=== PATIENT | female | born 1995 | race Caucasian/White ===

== ENCOUNTER 2018-05-23 17:44 | Emergency (ER) | payer OTHER, SELFPAY ==
[2018-05-23 17:45] VITALS: BP 136/73; PULSE 94; RESP 16; TEMP 36.8; O2SAT 98; BMI 38.9
--- NOTE | 2018-05-23 18:11 | CT_ITS ---
STUDY: CT ABDOMEN AND PELVIS WITHOUT CONTRAST REASON FOR EXAM: Female, 22 years old. Flank pain RADIATION DOSAGE (If Supplied By Facility): CTDIvol = ( 20.56 ) mGy, DLP = ( 1052.76 ) mGycm TECHNIQUE: Transaxial images were obtained from the dome of the diaphragm to the symphysis pubis without oral contrast, and without intravenous contrast. Sagittal and coronal images were reconstructed. Individualized dose optimization techniques were used for this CT. COMPARISON: None. FINDINGS: The visualized lung bases are unremarkable. The visualized portions of the heart are within normal limits. Normal liver. Normal gallbladder and extrahepatic biliary system. Normal spleen. Normal pancreas. Normal bilateral adrenal glands. Normal right kidney. Normal left kidney. Normal visualized stomach. Normal small intestine. Retained stool noted throughout the colon. The appendix is visualized and appears normal. And expressed seen on coronal recon image 63 and 64 Normal abdominal aorta. Normal inferior vena cava. Normal retroperitoneum. Normal urinary bladder. Normal visualized uterus. No suspicious adnexal mass or free fluid Normal abdominal wall. Normal osseous structures. CT/Abdomen/Pelvis without Cont IMPRESSION: No suspicious solid organ abnormality No CT evidence of an acute inflammatory process, normal appendix visualized. Electronically Signed: Jason West MD at 19:40 EST , Service support ,
[2018-05-23 18:24] LABS: Absolute Lymphocyte Count 2.16 X10^3/ul (0.83-4.51); Absolute Neutrophil Count 7.1 X10^3/uL (2.0-7.7); Basophil# 0.07 X10^3/uL; Basophil% 0.6 % (0-1); Eosinophils% 2.7 % (0-5); Hematocrit 39.6 % (37-47); Hemoglobin 12.7 g/dl (12.0-15.0); Lymphocyte # 2.16 X10^3/ul (4.0); Lymphocyte % 19.8 % (19-41); Mean Corp Hgb Conc 32.1 g/gl (32-36); Mean Corpuscular Hgb 29.3 pg (27.0-32.0); Mean Corpuscular Volume 91.2 fL (81-99); Monocyte# 1.23 X10^3/uL; Monocyte% 11.3 % (0-10); Neutrophil # 7.13 X10^3/uL (2.7-7.7); Neutrophil % 65.4 % (47-70); Platelet Count 344 K/mm3 (150-450); RBC Distribution Width CV 13.7 % (11.6-14.6); RBC Distribution Width SD 45.8 fl (35.1-43.9); Red Blood Count 4.34 M/mm3 (4.2-5.4); White Blood Count 10.9 K/mm3 (4.4-11.0)
[2018-05-23] MEDS: 0.9% Normal Saline 1,000 ML 150 ML IV (18:25)
[2018-05-23] MEDS: Morphine 4 MG/ML Syringe IV (18:25)
[2018-05-23] MEDS: Ondansetron 4 MG/2 ML Vial IV ×2 (18:25→18:54)
[2018-05-23 18:26] LABS: POSITIVE COUNT NO; POSITIVE DIFFERENTIAL NO; POSITIVE MORPHOLOGY NO
[2018-05-23 18:36] LABS: Red Blood Cells-Urine 0 SEEN /hpf (0-5)
[2018-05-23 18:39] LABS: Anion Gap 9 (5-15); BUN 15 mg/dL (7-18); BUN/Creat Ratio 16.4 RATIO (10-20); Calcium,Total 8.4 mg/dL (8.5-10.1); Chloride 108 mmol/L (98-107); Creatinine, Serum 0.91 mg/dL (0.55-1.02); EST Glomerular Filtration Rate 82 mL/min (>60); Est Glom Filt Rate - Afr Amer 100 mL/min (>60); Estimated Creatinine Clearance 91.55 ml/min; Glucose 104 mg/dL (74-106); Potassium 3.8 mmol/L (3.5-5.1); Sodium Level 140 mmol/L (136-145)
[2018-05-23 18:58] LABS: Color, Urine Yellow (Yellow); Glucose, Dipstick Normal (Normal); Ketone-Dipstick 5 mg/dl (Negative); Leukocyte Esterase-Dipstick 500 /ul (Negative); Nitrite-Dipstick Negative (Negative); Occult Blood-Urine 10 /ul (Negative); Protein-Dipstick 15 mg/dl (Negative); Specific Gravity, Urine 1.025 (1.002-1.030); Urine Bilirubin Dipstick Negative (Negative); Urine Clarity Sl. Cloudy (Clear); Urine Urobilinogen 1 mg/dl (Normal)
[2018-05-23 19:08] LABS: Bacteria 1+ /hpf (None Seen); Calcium Oxalate Crystals Ur 1+ /hpf (<or=2+); Mucous, Urine RARE /hpf (<or=2+)
[2018-05-23 19:09] LABS: Squamous Epithelial Cells - UA 0-5 SEEN /hpf (5-10); White Blood Cells 10-25 SEEN /hpf (0-5)
[2018-05-23 19:12] LABS: Pregnancy, Serum, hCG Quali. NEGATIVE Negative (0-9 Nonpreg)
--- NOTE | 2018-05-23 20:09 | ED.VISSUMM ---
- ER Visit Summary Date of Service: 05/23/18 Chief Complaint: [Left flank pain] History of Present Illness: The patient is a 22 F [presents the emergency department left-sided flank pain that started a week ago. Patient rates her pain currently as a 6 or 7 out of 10. Patient had some nausea with it but no vomiting. Patient has noticed some intermittent blood in the urine. She denies any dysuria. Patient has noted that the urine has been somewhat cloudy. She was seen by Dr. Sotelo in the office today and had a urine dip screen and there was blood in it and there was concern for possible kidney stone as patient has had history of kidney stones in the past. Patient also with history of asthma. Patient does not believe that she is and her last menstrual period was on May 05.] Physical Examination: [HEENT-PERRLA, EOMI. Cranial nerves II through XII grossly intact. TMs clear. Mucous membranes moist. No adenopathy. Cardiovascular-regular rate and rhythm without murmur or ectopy Lungs-clear to auscultation, chest wall stable without crepitus or subcu emphysema Abdomen-normoactive bowel sounds, soft. Patient has tenderness palpation over left lower quadrant. There is no rebound, rigidity, or perineal signs. Patient has some mild CVA tenderness on the left. Extremities-intact ?4, normal range of motion, normal pulses, atraumatic] Test Results: [CBC with differential was normal. Chemistries unremarkable. Urinalysis was positive for 500 leukocyte esterase, 10-25 WBCs, +1 bacteria. H[address] was negative. CT flank showed nothing acute.] Emergency Department Course and Treatment: [Patient was given Rocephin 1 g IV. Patient was medicated with morphine and Zofran.] Treatment Plan: [Patient will be given a prescription for Bactrim as well as [place] for severe pain.] Disposition: [Discharged home in stable condition. Patient advised to return if worsening pain, fever, vomiting, or condition should worsen anyway.] Impression: [Urinary tract infection-early pyelonephritis] This note was generated with [employer] dictation software. It may contain incorrect words, spelling, and punctuation that were not noted in review of the chart prior to signing ED Disposition - Plan for ED Patient: Referrals: Gokul Gonzalez MD [Primary Care Provider] -
--- NOTE | 2018-05-23 20:12 | ED.DEP ---
ED Disposition - Plan for ED Patient: Instructions: ED UTI Cystitis Female Prescriptions: Hydrocodone Bitart/Apap 5-325 [[place] 5MG-325MG] 1 tab PO Q4H PRN PRN 2 Days #10 tab PRN Reason: Pain Smz/Tmp Ds [Bactrim Ds] 1 tab PO BID #10 tab Referrals: Gokul Gonzalez MD [Primary Care Provider] - 3-5 Days
--- NOTE | 2018-05-23 20:14 | DCINST.ED_ITS ---
ED Disposition - Plan for ED Patient: Instructions: ED UTI Cystitis Female Prescriptions: Hydrocodone Bitart/Apap 5-325 [[place] 5MG-325MG] 1 tab PO Q4H PRN PRN 2 Days #10 tab PRN Reason: Pain Ondansetron [Zofran Odt] 4 mg PO Q8H PRN PRN #10 tab PRN Reason: Nausea Smz/Tmp Ds [Bactrim Ds] 1 tab PO BID #10 tab Referrals: Gokul Gonzalez MD [Primary Care Provider] - 3-5 Days
[2018-05-23] MEDS: Ceftriaxone 1 GM/50 ML BAG IV (20:24)
== END 2018-05-23 21:07 | disposition home or self-care (01) ==
PROVIDERS: Emergency Provider Emergency Medicine; Family Provider Family Medicine; PCP Family Medicine
DX: N39.0 Urinary tract infection, site not specified (principal); N12 Tubulo-interstitial nephritis, not specified as acute or chronic; J45.909 Unspecified asthma, uncomplicated; Z87.442 Personal history of urinary calculi
CPT/HCPCS: 74176; 80048; 81001; 84703; 85025; 87086; 87088; 96361; 96365; 96375; 99283; A4216; J2405

== ENCOUNTER → 2018-05-25 20:53 | Outpatient (CLI) | payer OTHER, SELFPAY | LOC: SL 20:53 | PROVIDERS: Family Provider Family Medicine; PCP Family Medicine; Visit Provider Pediatrics | DX: G47.9 Sleep disorder, unspecified (principal) | CPT/HCPCS: 95810 ==

== ENCOUNTER 2018-07-10 12:41 | Emergency (ER) | payer OTHER, SELFPAY ==
[2018-07-10 12:42] VITALS: BP 147/74; PULSE 75; RESP 23; TEMP 36.9; O2SAT 96; BMI 37.1
--- NOTE | 2018-07-10 13:08 | CT_ITS ---
STUDY: CT ABDOMEN AND PELVIS WITHOUT CONTRAST REASON FOR EXAM: Female, 22 years old. Left flank pain and history of kidney stones. RADIATION DOSAGE (If Supplied By Facility): CTDIvol = ( 21.21 ) mGy, DLP = ( 1070.49 ) mGycm TECHNIQUE: Transaxial images were obtained from the dome of the diaphragm to the symphysis pubis without oral contrast, and without intravenous contrast. Sagittal and coronal images were reconstructed. Individualized dose optimization techniques were used for this CT. COMPARISON: Comparison is made with prior study dated May 23, 2018. FINDINGS: Minimal degree of increased markings at the lung bases suggestive of mild basilar atelectasis. The visualized portions of the heart are within normal limits. Normal liver. Normal gallbladder and extrahepatic biliary system. Normal spleen. Normal pancreas. Normal bilateral adrenal glands. Punctate calcification in the mid lower portion of the right kidney. Mild degree of left hydronephrosis and left hydroureter due to a 2.5 mm calculus in the distal portion of the left ureter just proximal to the ureterovesical junction. This calculus was previously seen in the lower pole of the left kidney. There is a small hiatal hernia. Normal small intestine. Normal colon. The appendix is visualized and appears normal. Normal abdominal aorta. Normal inferior vena cava. Normal retroperitoneum. Normal urinary bladder. Normal abdominal wall. Normal osseous structures. CT/Abdomen/Pelvis without Cont IMPRESSION: Mild left hydronephrosis and left hydroureter due to a 2.5 mm calculus in the distal portion of left ureter just proximal to the ureterovesical junction. This calculus was seen in the left kidney on prior examination. Electronically Signed: Virgil Frost, at 14:51 EDT , Service support ,
[2018-07-10] MEDS: 0.9% Normal Saline 1,000 ML 250 ML IV (13:14)
[2018-07-10] MEDS: Morphine 4 MG/ML Syringe IV (13:15)
[2018-07-10] MEDS: Ondansetron 4 MG/2 ML Vial IV (13:15)
[2018-07-10] MEDS: Ketorolac 30 MG/ML Syringe IV (13:15)
[2018-07-10 13:27] LABS: Absolute Lymphocyte Count 2.49 X10^3/ul (0.83-4.51); Absolute Neutrophil Count 6.2 X10^3/uL (2.0-7.7); Basophil# 0.06 X10^3/uL; Basophil% 0.6 % (0-1); Eosinophil# 0.46 X10^3/uL; Eosinophils% 4.5 % (0-5); Hematocrit 39.6 % (37-47); Hemoglobin 12.9 g/dl (12.0-15.0); Lymphocyte # 2.49 X10^3/ul (4.0); Lymphocyte % 24.3 % (19-41); Mean Corp Hgb Conc 32.6 g/gl (32-36); Mean Corpuscular Hgb 29.3 pg (27.0-32.0); Mean Corpuscular Volume 89.8 fL (81-99); Mean Platelet Vol. 10.4 fl (6.2-12.0); Monocyte# 1.07 X10^3/uL; Monocyte% 10.4 % (0-10); Neutrophil # 6.16 X10^3/uL (2.7-7.7); Platelet Count 308 K/mm3 (150-450); RBC Distribution Width CV 13.4 % (11.6-14.6); Red Blood Count 4.41 M/mm3 (4.2-5.4); White Blood Count 10.3 K/mm3 (4.4-11.0)
[2018-07-10 13:29] LABS: POSITIVE COUNT NO; POSITIVE DIFFERENTIAL NO; POSITIVE MORPHOLOGY NO
[2018-07-10 13:30] LABS: Anion Gap 8 (5-15); BUN 20 mg/dL (7-18); BUN/Creat Ratio 16.5 RATIO (10-20); Calcium,Total 8.6 mg/dL (8.5-10.1); Chloride 108 mmol/L (98-107); Creatinine, Serum 1.21 mg/dL (0.55-1.02); EST Glomerular Filtration Rate 59 mL/min (>60); Est Glom Filt Rate - Afr Amer 72 mL/min (>60); Estimated Creatinine Clearance 68.85 ml/min; Glucose 109 mg/dL (74-106); Potassium 3.8 mmol/L (3.5-5.1); Sodium Level 142 mmol/L (136-145)
[2018-07-10 14:08] LABS: Pregnancy, Serum, hCG Quali. NEGATIVE Negative (0-9 Nonpreg)
[2018-07-10 14:50] LABS: White Blood Cells 0 SEEN /hpf (0-5)
[2018-07-10 14:51] LABS: Color, Urine Yellow (Yellow); Glucose, Dipstick Normal (Normal); Ketone-Dipstick 5 mg/dl (Negative); Leukocyte Esterase-Dipstick 25 /ul (Negative); Nitrite-Dipstick Negative (Negative); Occult Blood-Urine 250 /ul (Negative); Protein-Dipstick 15 mg/dl (Negative); Specific Gravity, Urine 1.025 (1.002-1.030); Urine Bilirubin Dipstick Negative (Negative); Urine Clarity Sl. Cloudy (Clear); Urine Urobilinogen Normal (Normal)
[2018-07-10 15:03] LABS: Bacteria 1+ /hpf (None Seen); Calcium Oxalate Crystals Ur 1+ /hpf (<or=2+); Mucous, Urine 2+ /hpf (<or=2+); Red Blood Cells-Urine 10-25 SEEN /hpf (0-5); Squamous Epithelial Cells - UA 0-5 SEEN /hpf (5-10)
--- NOTE | 2018-07-10 15:26 | ED.VISSUMM ---
- ER Visit Summary Date of Service: 07/10/18 Chief Complaint: Kidney stone History of Present Illness: The patient is a 22 F who states that this morning had a sudden onset of left flank pain. Radiating slightly around to the front. She notes nausea. She states she has had kidney stone 5 or 6 time is had one lithotripsy when she was living in [place]. No fevers. She states that she feels the urge to urinate but is unable to. Physical Examination: Afebrile vital signs stable Gen: Well-nourished well-developed is uncomfortable in the bed Head: Normocephalic atraumatic Eyes: Perrl EOMI ENT: TMs clear no rhinorrhea moist mucous membranes Neck: Supple no lymphadenopathy no JVD nontender CVS: Regular rate rhythm no murmurs normal S1-S2 Respiratory: No distress clear to auscultation bilaterally chest nontender Abdomen: Soft nontender nondistended normal bowel sounds no masses Back: Nontender Extremity: Nontender no edema Skin: Normal color no rash Neuro: alert orientated ?3 CN II-XII intact normal strength sensation reflexes gait cerebellar Psych: Normal affect normal mood Test Results: Urine shows no overt infection. Noted calcium oxalate crystals. Creatinine 1.21. Normal white count. CT the flank to him straits a distal 2.5 mm ureteral stone with associated hydronephroureter. Emergency Department Course and Treatment: Patient received Toradol morphine Zofran and fluids repeat examination finds her to be improved. Patient will be discharged home with prescriptions for Toradol and Percocet. I also write for Zofran. Urine strainer will be given. Return if worsening or concerns follow-up with primary care Impression: 1. 2.5 mm left ureterolithiasis with associated hydronephroureter This note was generated with [employer] dictation software. It may contain incorrect words, spelling, and punctuation that were not noted in review of the chart prior to signing ED Disposition - Plan for ED Patient: Disposition: Home or Assisted Living Instructions: ED Stone Renal W Colic Prescriptions: Ondansetron [Zofran Odt] 4 mg PO Q6H PRN PRN #20 tab PRN Reason: Nausea Oxycodone HCl/Acetaminophen [Percocet 5/325] 1 tab PO Q6H PRN PRN 3 Days #12 tab PRN Reason: Pain Ketorolac [Toradol] 10 mg PO Q8H PRN #15 tab PRN Reason: Pain Referrals: Gokul Gonzalez MD [Primary Care Provider] - 3-5 Days if not improving
[2018-07-10 15:54] VITALS: BP 121/68; PULSE 72; RESP 15; O2SAT 98
== END 2018-07-10 15:55 | disposition home or self-care (01) ==
PROVIDERS: Emergency Provider Emergency Medicine; Family Provider Family Medicine; PCP Family Medicine
DX: N13.2 Hydronephrosis with renal and ureteral calculous obstruction (principal); J45.909 Unspecified asthma, uncomplicated; F32.9 Major depressive disorder, single episode, unspecified
CPT/HCPCS: 74176; 80048; 81001; 84703; 85025; 96361; 96374; 96375; 99283; J7030; A4216; J2405

== ENCOUNTER → 2019-11-27 14:27 | Outpatient (CLI) | payer OTHER, SELFPAY ==
[2018-09-30 10:23] VITALS: BMI 37.1
--- NOTE | 2019-11-27 14:37 | CT_ITS ---
STUDY: CT ABDOMEN AND PELVIS WITHOUT CONTRAST REASON FOR EXAM: Female, 24 years old. Hematuria, right flank pain x 1 week, hx kidney stones, prior lithotripsy and renal stents. RADIATION DOSAGE (If Supplied By Facility): CTDIvol = ( 20.63 ) mGy, DLP = ( 1077.31 ) mGycm TECHNIQUE: Transaxial images were obtained from the dome of the diaphragm to the symphysis pubis without oral contrast, and without intravenous contrast. Sagittal and coronal images were reconstructed. Individualized dose optimization techniques were used for this CT. COMPARISON: None. FINDINGS: The visualized lung bases are unremarkable. The visualized portions of the heart are within normal limits. Normal liver. Normal gallbladder and extrahepatic biliary system. Normal spleen. Normal pancreas. Normal bilateral adrenal glands. Normal right kidney. Normal left kidney. Normal visualized stomach. Normal small intestine. Normal colon. The appendix is visualized and appears normal. Normal abdominal aorta. Normal inferior vena cava. Normal retroperitoneum. Normal urinary bladder. Normal abdominal wall. Normal osseous structures. CT/Abdomen/Pelvis without Cont IMPRESSION: Normal unenhanced CT of the abdomen and pelvis. Electronically Signed: Jairo Hubbard, at 15:08 EDT Tel , Service support ,
== END ==
PROVIDERS: PCP Family Medicine; Referring Provider Family Medicine; Visit Provider Family Medicine
DX: R31.29 Other microscopic hematuria (principal); R10.9 Unspecified abdominal pain
CPT/HCPCS: 74176

== ENCOUNTER → 2021-01-10 | Outpatient (CLI) | payer OTHER, SELFPAY | END | disposition home or self-care (01) | LOC: LABSPEC 01-12 08:14 | PROVIDERS: PCP Family Medicine; Referring Provider Physician Assistant Surgical; Visit Provider Physician Assistant Surgical | DX: Z20.822 Contact with and (suspected) exposure to COVID-19 (principal) | CPT/HCPCS: 87635; U0005; U0003 ==

== ENCOUNTER → 2021-01-18 | Outpatient (CLI) | payer OTHER, SELFPAY | END | disposition home or self-care (01) | PROVIDERS: PCP Family Medicine; Referring Provider Nurse Practitioner Family; Visit Provider Nurse Practitioner Family | DX: U07.1 COVID-19 (principal); R43.0 Anosmia; R43.2 Parageusia | CPT/HCPCS: 87635; U0005; U0003 ==

== ENCOUNTER → 2021-11-16 | Outpatient (CLI) | payer OTHER, SELFPAY ==
[2021-11-16 15:33] LABS: Absolute Lymphocyte Count 2.59 X10^3/uL (0.83-4.51); Absolute Neutrophil Count 5.6 X10^3/uL (2.0-7.7); Basophil# 0.08 X10^3/uL; Basophil% 0.8 % (0-1); Eosinophil# 0.53 X10^3/uL; Eosinophils% 5.5 % (0-5); Hematocrit 41.2 % (37-47); Hemoglobin 13.7 g/dL (12.0-15.0); Lymphocyte # 2.59 X10^3/ul (0.83-4.51); Lymphocyte % 26.9 % (19-41); Mean Corp Hgb Conc 33.3 g/dL (32-36); Mean Corpuscular Hgb 29.6 pg (27.0-32.0); Mean Platelet Vol. 11.1 fl (6.2-12.0); Monocyte# 0.86 X10^3/uL; Monocyte% 8.9 % (0-10); NRBC Flagged by Analyzer 0 % (0-5); Neutrophil # 5.55 X10^3/uL (2.7-7.7); Neutrophil % 57.7 % (47-70); Platelet Count 374 K/mm3 (150-450); RBC Distribution Width CV 13.7 % (11.6-14.6); RBC Distribution Width SD 44.8 fl (35.1-43.9); Red Blood Count 4.63 M/mm3 (4.2-5.4); White Blood Count 9.6 K/mm3 (4.4-11.0)
[2021-11-16 16:01] LABS: Anion Gap 5 (5-15); BUN 11 mg/dL (7-18); BUN/Creat Ratio 13.6 RATIO (10-20); Calcium,Total 9.1 mg/dL (8.5-10.1); Chloride 108 mmol/L (98-107); Creatinine, Serum 0.81 mg/dL (0.55-1.02); EST Glomerular Filtration Rate 92 mL/min (>60); Est Glom Filt Rate - Afr Amer 111 mL/min (>60); Glucose 85 mg/dL (74-106); Potassium 4.2 mmol/L (3.5-5.1); Sodium Level 138 mmol/L (136-145); Thyroid Stim Hormone (TSH) 2.02 uIU/mL (0.358-3.74)
== END | disposition home or self-care (01) ==
LOC: MFPLAB 11:34
PROVIDERS: PCP Family Medicine; Visit Provider Family Medicine
DX: R00.2 Palpitations (principal)
CPT/HCPCS: 36415; 80048; 84443; 85025

== ENCOUNTER 2021-11-23 15:25 | Emergency (ER) | payer OTHER, SELFPAY ==
[2021-11-23 15:26] VITALS: BP 161/87; PULSE 73; RESP 16; TEMP 36.6; O2SAT 99; BMI 43.5
--- NOTE | 2021-11-23 15:52 | CT_ITS ---
STUDY: CTA OF THE BRAIN REASON FOR EXAM: Female, 26 years old. HEADACHE TECHNIQUE: CT angiography was performed with a multi-detector CT scanner. Data acquisition was obtained from the skull base through the vertex following intravenous administration of IV 100mL Isovue-370 contrast. MIP images were reconstructed from the axial data set. Post-processing of the angiographic images was performed, with multiplanar reformation and 3D reconstruction. MIPS images were obtained. Analyzed with [email or web address] Individualized dose optimization techniques were used for this CT. COMPARISON: None. FINDINGS: Normal bilateral petrous carotid arteries. Normal right cavernous carotid artery with a normal supraclinoid bifurcation. Normal left cavernous carotid artery with a normal supraclinoid bifurcation. Normal right A1 segments of the anterior cerebral artery. Normal left A1 segments of the anterior cerebral artery. Normal intact anterior communicating artery (ACOM). Normal bilateral A2 segments of the anterior cerebral arteries. Normal right M1 and M2 segments of the middle cerebral arteries, with a normal M1 bifurcation. Normal left M1 and M2 segments of the middle cerebral arteries, with a normal M1 bifurcation. Normal right posterior communicating artery (PCOM). Normal left posterior communicating artery (PCOM). Normal bilateral vertebral arteries. Normal basilar artery with a normal basilar bifurcation. The visualized bilateral superior cerebellar (SCA) arteries are normal. Normal bilateral P1, P2 and visualized P3 segments of the posterior cerebral arteries. There is no demonstrated aneurysm of the [place]. There is no demonstrated abnormality of the visualized brain. Right parietal venous angioma. CT/CTA Head W/WO Contrast IMPRESSION: Normal [place] without a demonstrated aneurysm or hemodynamically significant stenosis. Right parietal venous angioma. Electronically Signed: Chan Mazariegos MD at 16:40 EDT ,
--- NOTE | 2021-11-23 15:53 | EKG12_ITS ---
Test Reason : palpitations Blood Pressure : / mmHG Vent. Rate : 080 BPM Atrial Rate : 080 BPM P-R Int : 164 ms QRS Dur : 098 ms QT Int : 392 ms P-R-T Axes : 069 089 037 degrees QTc Int : 452 ms Normal sinus rhythm with sinus arrhythmia Normal ECG Confirmed by HONG CATES, DICKSON ([id number]), slot editor HERNANDEZ CARD ([id number]) on 11/25/2021 9:43:30 AM Referred By: Daryl Confirmed By:DICKSON PITTS MD
--- NOTE | 2021-11-23 15:54 | EDS_ITS ---
HPI History of Present Illness Chief Complaint: Palpitations Detail of Chief Complaint: Headache Informant: patient Onset/Context/Timing Onset: Today Narrative Narrative: Patient is been having recent palpitations and is currently wearing an event monitor. She had lab work performed earlier this month that was unremarkable. Patient states today she was going up a flight of steps and her heart started pounding. She developed a headache and felt weak all over. She states has had the symptoms previously but never presented for evaluation. She has a pulse ox meter at home and when she put that on her finger her heart rate was 108. It quickly came down into the 80s. She states her symptoms are improving at this time. There is a family history of atrial fibrillation. Family denies any known history of aneurysms. [facility] Medical History (Updated 11/23/21 @ 17:[address] Gabriela Brito MD) History of kidney stones Home Medications albuterol sulfate 90 mcg/actuation aerosol inhaler (Ventolin HFA) 2 puff inhalation Q6H PRN wheezing 09/20/17 [History Last Taken Unknown] beclomethasone dipropionate 80 mcg/actuation HFA breath activated aerosol 2 puff inhalation BID 05/23/18 [History Last Taken Unknown] ondansetron 4 mg disintegrating tablet 4 mg PO Q8H PRN PRN Nausea #10 tabs 05/23/18 [Rx Last Taken Unknown] trazodone 50 mg tablet 25 mg PO QHS 05/23/18 [History Last Taken Unknown] fluoxetine 20 mg capsule 20 mg PO DAILY 07/10/18 [History Last Taken Unknown] ketorolac 10 mg tablet 10 mg PO Q8H PRN Pain #15 tabs 07/10/18 [Rx Last Taken Unknown] ondansetron 4 mg disintegrating tablet 4 mg PO Q6H PRN PRN Nausea #20 tabs 07/10/18 [Rx Last Taken Unknown] Allergy/AdvReac Type Severity Reaction Status Date / Time fluticasone Allergy Unknown Verified 11/23/21 15:29 [From Advair Diskus] salmeterol Allergy Unknown Verified 11/23/21 15:29 [From Advair Diskus] Social History Smoking Status: Never smoker alcohol intake: never ROS ROS ED Constitutional Constitutional ED: Denies chills or fever(s) Eyes Eyes: Denies change in vision or discharge from eye(s) ENT ENT ED: Denies discharge from eye(s), rhinorrhea or sore throat Cardiovascular Cardiovascular: Reports palpitations; Denies chest pain Respiratory/Chest Respiratory/Chest: Denies cough or dyspnea Gastrointestinal Gastrointestinal: Denies abdominal pain, diarrhea, nausea or vomiting Genitourinary Genitourinary ED: Denies difficulty urinating or dysuria Musculoskeletal Musculoskeletal: Denies back pain or extremity pain Integumentary Denies Abrasions or rash Neurologic Neurologic: Reports headache(s) and weakness Psychiatric Psychiatric: Denies anxiety or depression Allergic/Immunologic Allergic/Immunologic ED: Denies lip swelling or urticaria EXAM Physical Exam Const Vital Signs: 11/23/21 15:26 11/23/21 15:53 Temperature 97.8 F Temperature Source Temporal Pulse Rate 73 Respiratory Rate 16 Respiratory Effort Normal Blood Pressure 161/87 H Blood Pressure Mean 111 Pulse Ox 99 Oxygen Delivery Method Room Air Positive well nourished and well developed General Appearance ED: well developed HEENT Reports normocephalic and head/scalp atraumatic Eyes PERRL and EOMs intact bilaterally Neck supple Chest Wall inspection of chest normal and palpation of chest normal Resp normal respiratory effort and clear to auscultation bilaterally Cardio regular rate and regular rhythm GI normal to inspection, nondistended, normoactive bowel sounds Palpation: soft Extremity normal to inspection Neuro oriented x3 and no sensory deficits noted Neuro Narrative: NIH equals 0. Sensorium / Orientation: alert Motor Exam: strength 5/5 throughout Psych mental status grossly normal Skin no rashes or lesions noted MDM MDM MDM Narrative Medical decision making narrative: Placed on phototypesetting equipment monitor. EKG, lab work obtained. CTA of the head obtained to ensure no aneurysm given her headache and weakness. Lab Data Attestation: I reviewed the patient's lab results. Labs: Laboratory Results - last 24 hr 11/23/21 11/23/21 11/23/21 16:03 16:03 16:03 WBC 10.3 RBC 4.31 Hgb 12.4 Hct 38.0 MCV 88.2 MCH 28.8 MCHC 32.6 RDW Std Deviation 43.0 RDW Coeff of Carlos 13.3 Plt Count 308 MPV 11.1 Immature Gran % (Auto) 0.300 Neut % (Auto) 61.9 Lymph % (Auto) 23.0 [place] % (Auto) 10.8 H Eos % (Auto) 3.3 Baso % (Auto) 0.7 Absolute Neuts (auto) 6.4 Absolute Lymphs (auto) 2.37 Nucleated RBC % 0 Sodium 138 Potassium 4.0 Chloride 107 Carbon Dioxide 28.0 Anion Gap 3 L BUN 12 Creatinine 0.97 Estim Creat Clear Calc 83.00 Est GFR (MDRD) Af Amer 90 Est GFR (MDRD) Non-Af 75 BUN/Creatinine Ratio 12.4 Glucose 93 Calcium 8.8 Serum , Qual NEGATIVE Radiography Diagnostic Testing: Clinical Impression(s) from Imaging Studies Head CTA 11/23/21 15:52 IMPRESSION: Normal [place] without a demonstrated aneurysm or hemodynamically significant stenosis. Right parietal venous angioma. Electronically Signed: Chan Mazariegos MD at 16:40 EDT , EKG Initial EKG: Attestation: I personally reviewed and interpreted this EKG as follows: Interpretation: Sinus Rhythm (Sinus 80 with no acute ischemia.) Treatment and Re-Evaluation Narrative: On repeat evaluation patient resting comfortably. Blood pressure has improved to 127/74. Patient feels back to baseline at this time. Lab work is unremarkable. CT head reveals no evidence of aneurysm. She will continue to wear her event monitor until Tuesday and follow-up with cardiology. Discharge Plan Triage Chief Complaint: Palpitations ED Provider: Gabriela Brito Dx/Rx/DC Orders Clinical Impression: Palpitations, Headache Instructions: ED Palpitations Prescriptions: No Action albuterol sulfate [Ventolin HFA] 90 mcg/actuation HFA aerosol inhaler 2 puff INHALATION Q6H PRN (Reason: wheezing) trazodone 50 MG tablet 25 mg PO QHS beclomethasone dipropionate 1 PUFF inhaler 2 puff Inhalation BID ondansetron 4 MG tablet 4 mg PO Q8H PRN PRN (Reason: Nausea) Qty: 10 0RF fluoxetine 20 MG capsule 20 mg PO DAILY ketorolac 10 MG tablet 10 mg PO Q8H PRN (Reason: Pain) Qty: 15 0RF ondansetron 4 MG tablet 4 mg PO Q6H PRN PRN (Reason: Nausea) Qty: 20 0RF Primary Care Provider: Gokul Gonzalez Referrals: Gokul Gonzalez MD [Primary Care Provider] - 1-2 Weeks Disposition Disposition: Home, Self Care
[2021-11-23 16:11] LABS: Absolute Lymphocyte Count 2.37 X10^3/uL (0.83-4.51); Absolute Neutrophil Count 6.4 X10^3/uL (2.0-7.7); Basophil# 0.07 X10^3/uL; Basophil% 0.7 % (0-1); Eosinophil# 0.34 X10^3/uL; Eosinophils% 3.3 % (0-5); Hemoglobin 12.4 g/dL (12.0-15.0); Lymphocyte # 2.37 X10^3/ul (0.83-4.51); Mean Corp Hgb Conc 32.6 g/dL (32-36); Mean Corpuscular Hgb 28.8 pg (27.0-32.0); Mean Corpuscular Volume 88.2 fL (81-99); Mean Platelet Vol. 11.1 fl (6.2-12.0); Monocyte# 1.11 X10^3/uL; Monocyte% 10.8 % (0-10); NRBC Flagged by Analyzer 0 % (0-5); Neutrophil # 6.39 X10^3/uL (2.7-7.7); Neutrophil % 61.9 % (47-70); Platelet Count 308 K/mm3 (150-450); RBC Distribution Width CV 13.3 % (11.6-14.6); Red Blood Count 4.31 M/mm3 (4.2-5.4); White Blood Count 10.3 K/mm3 (4.4-11.0)
[2021-11-23 16:13] LABS: POSITIVE COUNT NO; POSITIVE DIFFERENTIAL NO; POSITIVE MORPHOLOGY NO
[2021-11-23 16:22] LABS: Internal QC Validated? YES +Cl - CLEAR BKGD; Pregnancy, Serum, hCG Quali. NEGATIVE Negative
[2021-11-23 16:24] LABS: Anion Gap 3 (5-15); BUN 12 mg/dL (7-18); BUN/Creat Ratio 12.4 RATIO (10-20); Calcium,Total 8.8 mg/dL (8.5-10.1); Chloride 107 mmol/L (98-107); Creatinine, Serum 0.97 mg/dL (0.55-1.02); EST Glomerular Filtration Rate 75 mL/min (>60); Est Glom Filt Rate - Afr Amer 90 mL/min (>60); Glucose 93 mg/dL (74-106); Sodium Level 138 mmol/L (136-145)
== END 2021-11-23 17:24 | disposition home or self-care (01) ==
PROVIDERS: Emergency Provider Emergency Medicine; PCP Family Medicine; Visit Provider Emergency Medicine
DX: R00.2 Palpitations (principal); R51.9 Headache, unspecified
CPT/HCPCS: 70496; 80048; 84703; 85025; 93005; 99284; Q9967; A4216

== ENCOUNTER 2021-12-20 00:12 | Emergency (ER) | payer OTHER, SELFPAY ==
[2021-12-20 00:13] VITALS: BP 144/94; PULSE 80; RESP 16; TEMP 36.2; O2SAT 98; BMI 45.3
--- NOTE | 2021-12-20 01:01 | EDS_ITS ---
HPI History of Present Illness Chief Complaint: Other, Pain/Inj Detail of Chief Complaint: dizziness Informant: patient and parent Onset/Context/Timing Onset: Month(s) (1) Context: Sudden Onset Timing: Intermittent and Lasts (Minutes at most usually) Quality: Disequilibrium, sensation of movement motion sickness Location: Head Current Severity: Gone Maximum Severity: Moderate Worsened by: Standing up, other position changes Relieved by: Lying down or resting Associated Symptoms Associated Symptoms: Nausea, disorientation, shaky at times, headache, neck pain Narrative Narrative: Patient presents for multiple symptoms. For the past month he has been having episodes of dizziness with the above symptoms. When she is disoriented, she admits that she is having these episodes of dizziness. She does not recall being confused or disoriented when she does not feel dizzy or disequilibrium. For the past 5 or 6 days, she has had intermittent neck pain and swelling that will come on fairly quickly, typically goes away with a heating pad/pack, and then will be better until it starts again relatively suddenly. That happened again tonight, and due to her episodes of disorientation, she is here to make sure she does not have meningitis. She does not have any neck stiffness or fevers/chills. Other than the neck discomfort she does not have the other symptoms currently. Some days are worse than others she states. She has seen her doctor for this, and due to feeling dizzy and lightheaded at times, she had a Holter monitor that was unremarkable according to her. She denies any recent earache, otalgia, tinnitus, otorrhea, vision changes, focal or lateralizing neurologic symptoms. No recent head injuries or neck injuries or strains that she can recall. She is a college student, she does walk around with a backpack. She is also fully vaccinated with all recommended childhood vaccines including meningococcus. [facility] Medical History History of kidney stones Home Medications alprazolam 0.5 mg tablet 0.5 mg PO BID PRN PRN palpitations 12/20/21 [History Last Taken Unknown] fluoxetine 20 mg capsule 20 mg PO DAILY 12/20/21 [History Last Taken Unknown] meclizine 25 mg tablet 25 mg PO Q8H PRN PRN Dizziness #20 tabs 12/20/21 [Rx Last Taken Unknown] montelukast 10 mg tablet 10 mg PO DAILY 12/20/21 [History Last Taken Unknown] Allergy/AdvReac Type Severity Reaction Status Date / Time fluticasone Allergy Unknown Verified 12/20/21 00:16 [From Advair Diskus] salmeterol Allergy Unknown Verified 12/20/21 00:16 [From Advair Diskus] Social History Smoking Status: Never smoker alcohol intake: never ROS ROS ED Constitutional Constitutional ED: Denies chills or fever(s) Eyes Eyes: Denies blurry vision, change in vision or diplopia ENT ENT ED: Reports disequillibrium, dizziness, headache(s) and vertigo; Denies ear pain, epistaxis, facial pain, nasal congestion, otalgia, rhinorrhea, sore throat or tinnitus Cardiovascular Cardiovascular: Denies chest pain or palpitations Respiratory/Chest Respiratory/Chest: Denies cough or dyspnea Gastrointestinal Gastrointestinal: Reports nausea; Denies abdominal pain, diarrhea or vomiting Genitourinary Genitourinary ED: Denies dysuria or hematuria Musculoskeletal Musculoskeletal: Reports muscle spasms and neck pain; Denies back pain or sti ffness Integumentary Denies abscess or rash Neurologic Neurologic: Reports as per HPI, disequilibrium, headache(s) and vertigo; Denies paresthesias or weakness Psychiatric Psychiatric: Denies anxiety or suicidal thoughts EXAM Physical Exam Const Vital Signs: 12/20/21 00:13 12/20/21 00:19 Temperature 97.1 F L Temperature Source Temporal Pulse Rate 80 Respiratory Rate 16 Respiratory Effort Normal Non-Labored Respiratory Pattern Normal Blood Pressure 144/94 H Blood Pressure Mean 110 Pulse Ox 98 Oxygen Delivery Method Room Air Positive well nourished and well developed General Appearance ED: well developed and NAD HEENT Reports TM's clear and moist mucous membranes HEENT Narrative: EAC normal bilaterally. No mastoid tenderness. normocephalic and atraumatic Tympanic Membrane ED: Yes TM's clear Eyes PERRL and EOMs intact bilaterally Eyes Narrative: Fatigable horizontal nystagmus to the left. No nonfatigable nystagmus. No vertical or rotatory nystagmus. Neck full ROM and supple Neck Narrative: No meningismus. Chin to chest without difficulty. Full range of motion. No lymphadenopathy including posteriorly. Tender across the posterior base of the neck into the cervical portion of the trapezius bilaterally. Patient states she is a little swollen in this general area, I do not appreciate any discrete masses such as a lipoma. Resp normal respiratory effort and clear to auscultation bilaterally Cardio regular rate, regular rhythm and no murmurs Rate: Negative for tachycardic GI non-tender and non-distended Auscultation: normoactive bowel sounds Palpation: soft Back/Spine no CVA tenderness General Back: other FROM Extremity normal to inspection General Extremety ED: Negative for edema, pulses abnormal or tenderness General Extremity: Negative for edema or pulses abnormal Neuro oriented x3, CN's II-XII intact bilaterally and no sensory deficits noted Neuro Narrative: Normal [id number] and [id number] bilaterally. Negative Lasha-Hallpike. Negative Romberg. Sensorium / Orientation: awake and alert Motor Exam: strength 5/5 throughout Skin no rashes or lesions noted and no wounds MDM MDM MDM Narrative Medical decision making narrative: I was not able to reproduce her vertiginous symptoms here. She feels fine right now except for her neck is sore, she can move her head in all directions and clearly this is not meningitis, I reassured her and her father. She is in agreement and does not think she needs an LP even though I offered it. I think that is reasonable at this time. May be carrying her backpack is causing her neck soreness, which in turn is causing her headaches. I think the vertigo is a separate issue. I prescribed her meclizine to try that until she can follow-up with her regular doctor as an outpatient. She is comfortable with that plan. Discharge Plan Triage Chief Complaint: Other, Pain/Inj ED Provider: Winston Perea Dx/Rx/DC Orders Clinical Impression: Episodic peripheral vertigo, Trapezius muscle spasm Instructions: ED Neck Spasm, No Trauma, ED Vertigo, Unspecified Prescriptions: New meclizine [meclizine] 25 mg tablet 25 mg PO Q8H PRN PRN (Reason: Dizziness) Qty: 20 0RF No Action alprazolam 0.5 mg tablet 0.5 mg PO BID PRN PRN (Reason: palpitations) montelukast 10 mg tablet 10 mg PO DAILY fluoxetine 20 mg capsule 20 mg PO DAILY Primary Care Provider: Gokul Gonzalez Referrals: Gokul Gonzalez MD [Primary Care Provider] - 1 Week if not improving Disposition Disposition: Home, Self Care Discharge Date/Time: 12/20/21 01:09
== END 2021-12-20 01:09 | disposition home or self-care (01) ==
PROVIDERS: Emergency Provider Emergency Medicine; PCP Family Medicine; Visit Provider Emergency Medicine
DX: H81.399 Other peripheral vertigo, unspecified ear (principal); R41.0 Disorientation, unspecified; M62.838 Other muscle spasm
CPT/HCPCS: 99282

== ENCOUNTER → 2022-01-04 | Outpatient (CLI) | payer OTHER, SELFPAY ==
[2022-01-10 12:07] LABS: Cortisol, Urinary Free 21 ug/L (Undefined)
[2022-01-10 13:40] LABS: Cortisol, Free 24Ur 51 ug/24 hr (6-42)
== END | disposition home or self-care (01) ==
LOC: LABSPEC 10:17
PROVIDERS: PCP Family Medicine; Referring Provider Family Medicine; Visit Provider Family Medicine
DX: E65 Localized adiposity (principal)
CPT/HCPCS: 81050; 82530

== ENCOUNTER → 2022-01-29 | Outpatient (CLI) | payer SELFPAY | END | disposition home or self-care (01) | PROVIDERS: PCP Family Medicine; Referring Provider Family Medicine; Visit Provider Family Medicine | DX: E24.9 Cushing's syndrome, unspecified (principal) | CPT/HCPCS: 36415 ==

== ENCOUNTER → 2022-02-02 | Outpatient (CLI) | payer BC, SELFPAY ==
--- NOTE | 2022-02-02 12:52 | RAD_ITS ---
INDICATION: DISC DEGENERATION EXAMINATION/TECHNIQUE: X-RAY - XR Spine Cervical 2 or 3 Views COMPARISON: None. FINDINGS: VERTEBRAE: Preserved vertebral body height. No fracture. No spondylolisthesis. Preservation of the normal cervical lordosis. No significant facet arthropathy. The odontoid process is intact. DISCS: Disc spaces are maintained. NECK SOFT TISSUES: No prevertebral soft tissue widening. LUNG APICES: Clear. RAD/Cerv Spine 2 or 3 Views IMPRESSION: No evidence of acute fracture or spondylolisthesis. Electronically Signed: Kendall Cintron MD at 17:16 EDT ,
--- NOTE | 2022-02-02 12:52 | RAD_ITS ---
INDICATION: DISC DEGENERATION EXAMINATION/TECHNIQUE: X-RAY - XR Spine Lumbar 2 or 3 Views COMPARISON: None. FINDINGS: VERTEBRAE: Preserved vertebral body height. No fracture noted. There is a minimal dextroscoliotic curvature. No underlying vertebral or disc abnormalities however noted. No spondylolisthesis. Preservation of the normal lumbar lordosis. No significant facet arthropathy. Normal appearance of the visualized sacrum and sacroiliac joints. DISCS: Disc spaces are maintained. INCLUDED ABDOMEN: Included bowel gas pattern is non-obstructive. RAD/Lumbar Spine 2 or 3 Views IMPRESSION: No evidence of lumbar spinal fracture or spondylolisthesis. Minimal rightward convex curvature. No focal acute bony or paraspinous soft tissue abnormality. Electronically Signed: Kendall Cintron MD at 17:19 EDT ,
--- NOTE | 2022-02-02 12:55 | RAD_ITS ---
INDICATION: DISC DEGENERATION EXAMINATION/TECHNIQUE: X-RAY - XR Spine Thoracic 3 Views COMPARISON: No previous for comparison FINDINGS: VERTEBRAE: Preserved vertebral body height. No fracture. No spondylolisthesis. Preservation of the normal thoracic kyphosis. No significant facet arthropathy. DISCS: Disc spaces are maintained. Multilevel marginal osteophyte formation and minimal chronic endplate changes.. INCLUDED CHEST/ABDOMEN: No acute abnormalities. RAD/Thoracic Spine 3 Views IMPRESSION: 1. No evidence fracture, malalignment or focal bony or paraspinous soft tissue abnormality. 2. Early mild thoracic spondylosis with marginal osteophyte formation and early discogenic endplate changes. Electronically Signed: Kendall Cintron MD at 17:19 EDT ,
== END | disposition home or self-care (01) ==
LOC: RAD 12:44
PROVIDERS: PCP Family Medicine; Referring Provider Anesthesiology Pain Medicine; Visit Provider Anesthesiology Pain Medicine
DX: M50.30 Other cervical disc degeneration, unspecified cervical region (principal); M51.34 Other intervertebral disc degeneration, thoracic region; M51.36 Other intervertebral disc degeneration, lumbar region
CPT/HCPCS: 72040; 72072; 72100

== ENCOUNTER 2022-02-23 08:30 | Outpatient (RCR) | payer BC, SELFPAY ==
--- NOTE | 2022-02-17 17:23 | HP.PTEVAL_ITS ---
Patient's Visit Information HANY GALLARDO is a 26 year old F referred to Physical Therapy by Dr. Brittney Darling MD with a diagnosis of Back pain and muscle weakness. 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 It has caused a lot of muscle weakness in arms and legs and she can not lift anything and she has gained a lot of weight. They are waiting back on some test results. It was caught very recently. She started to have dehydration, increase weight loss etc. She is having trouble walking up stairs especially carrying something, can not lift anything, She can not have her arms over her head long enough to wash her hair or brush her hair for the past couple of weeks. She has to have 2 hands to lift anything. She has been having a lot of joint pain in R shoulder, R wrist, and R hip. She is seeing Dr Hola Champion on Tuesday. He has ordered 3 c- spine views of he spine and showed early onset spondylosis. She tries to do some exercises but if she moves around too much (she will get tendon pain, physical ill and nausea). She has to lay down if up for more than an hour. She is not working and finishing up her semester online ([employer])...she is going to school for [employer]. Tylenol and IBprof does not help the pain and ice and heat packs do not work. The pain and fatigue are stopping her from doing too much right now. - Pain R knee Pain Intensity (Out of 10): 7 R hip Pain Intensity (Out of 10): 7 R shoulder Pain Intensity (Out of 10): 7 Neck pain Pain Intensity (Out of 10): 7 - Objective Gait: Walks with a normal gait pattern. Pt has increase calf pain with walking on her heels. Pt is able to walk on her toes. LE MMT: R hip flex 8.6# and L 12.9#, R knee ext 15.2# and L knee ext 18.9#, R knee flex 11.3# and 13.6#, R hip abd 8.8# and L 14.1#. UE MMT: R shoulder flex 8.8# and L shoulder flex 9.7#, R shoulder abd 11# and L shoulder abd 11.7#, ER R shoulder 15.7# and L 17.9#. Pt had increase gastroc tightness,. Stairs: Up and down recip with increase R knee and hip pain and tightness using one rail - Balance/Special Test Scores Oswestry Low Back Score: 25 - Goals Goal 1:: I HEP Goal Time Frame: 6-8 Weeks Goal 2:: Increase UE strength (at the time of the eval: UE MMT: R shoulder flex 8.8# and L shoulder flex 9.7#, R shoulder abd 11# and L shoulder abd 11.7#, ER R shoulder 15.7# and L 17.9#) Goal Time Frame: 6-8 Weeks Goal 3:: Increase LE strength (at the time of the eval:LE MMT: R hip flex 8.6# and L 12.9#, R knee ext 15.2# and L knee ext 18.9#, R knee flex 11.3# and 13.6#, R hip abd 8.8# and L 14.1#) Goal Time Frame: 6-8 Weeks Goal 4:: Be able to go up and down the stairs recip without feeling weakness Goal Time Frame: 6-8 Weeks Goal 5:: Be able to do her hair without feeling weakness Goal Time Frame: 6-8 Weeks - Rehabilitation Potential Rehabilitation Potential: Good - Anticipated Interventions Patient/Client Instruction: Educate patient on: Condition, Plan of Care For the Purpose of:: To decrease pain, To increase ROM, To improve nutrient delivery to tissue, To improve muscle performance and motor function, To improve ability to perform ADL's, To increase tolerance to activity/condition/position, To improve performance and independence with ADL's, To decrease level of supervision to perform tasks, To improve ability of physical actions for home/community/work/leisure, To improve gait and locomotor functions, To improve health of tissue, To decrease soft tissue restriction, To increase flexibility/ROM, To improve endurance Therapeutic Exercise to Include: Strength training, Endurance training, Postural training, Flexibilty training, Neuromotor development, Passive ROM, Active ROM, Dynamic Lumbar Stabilization, Scapular Strength/Stabilization For the Purpose of:: To decrease pain, To increase ROM, To improve nutrient delivery to tissue, To improve muscle performance and motor function, To improve ability to perform ADL's, To increase tolerance to activity/condition/position, To improve performance and independence with ADL's, To decrease level of supervision to perform tasks, To improve ability of physical actions for home/community/work/leisure, To improve gait and locomotor functions, To improve health of tissue, To decrease soft tissue restriction, To increase flexibility/ROM Thank you for the opportunity to evaluate your patient. For Medicare and Medicare HMO plans, please review the plan of care and approve it. It will need to be FAXED BACK to us at [phone] for Medicare purposes. For Medicare only, by signing this I certify the plan of care. Please let me know if there are questions or concerns regarding this plan of care. Physician Signature: Date:
== END 2022-02-23 19:00 | disposition home or self-care (01) ==
LOC: PT 08:30
PROVIDERS: PCP Family Medicine; Referring Provider Anesthesiology Pain Medicine; Visit Provider Anesthesiology Pain Medicine
DX: M54.9 Dorsalgia, unspecified (principal)
CPT/HCPCS: 97110; 97162